=== PATIENT | female | born 1990 | race Caucasian/White ===

== ENCOUNTER 2023-05-12 11:51 | Inpatient (IN) | payer MEDICAID, SELFPAY ==
[2023-05-12 12:13] VITALS: BMI 28.6
[2023-05-12 12:16] VITALS: BP 127/77; PULSE 67; RESP 20; TEMP 36.9; O2SAT 98
[2023-05-12 14:00] VITALS: BP 125/68; PULSE 85; RESP 16; TEMP 37.1; O2SAT 97
[2023-05-12 19:26] VITALS: BP 123/73; PULSE 69; RESP 16; TEMP 37; O2SAT 97
[2023-05-12] MEDS: acetaminophen 325 mg Tablet 650 MG PO (20:39)
[2023-05-12] MEDS: trazodone 50 mg Tablet PO (20:39)
[2023-05-13 06:00] VITALS: BP 119/73; PULSE 74; RESP 18; O2SAT 90
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
--- NOTE | 2023-05-13 08:54 | PC.NURSE ---
During assessment, patient states that is feels anxiety and depression. Patient is not sure if she is going to be returning to her parents when is discharged from the unit. Patient denies thoughts of SI, HI, and AVH. Patient resting quietly in bed.
[2023-05-13 13:59] VITALS: BP 112/70; PULSE 71; RESP 20; TEMP 36.9; O2SAT 100
[2023-05-13] MEDS: acetaminophen 325 mg Tablet 650 MG PO (18:45)
--- NOTE | 2023-05-13 18:47 | PC.NURSE ---
Administered Tylenol to patient for menstrual cramps.
[2023-05-13 19:31] VITALS: BP 116/65; PULSE 106; RESP 18; TEMP 36.7; O2SAT 97
[2023-05-14 06:00] VITALS: BP 116/73; PULSE 88; RESP 18; TEMP 37; O2SAT 98
[2023-05-14] MEDS: acetaminophen 325 mg Tablet 650 MG PO (07:54)
--- NOTE | 2023-05-14 08:11 | PC.NURSE ---
During morning assessment, patient reports anxiety related leaving here and returning to her parents home; she doesn't always get along with her parents. Patient denied all else. Patient is experiencing mestrual cramps. Tylenol administered.
[2023-05-14 14:00] VITALS: BP 121/83; PULSE 97; RESP 16; TEMP 36.6; O2SAT 97
--- NOTE | 2023-05-14 16:12 | W.PM.NPUPNS ---
Subjective NPU Subjective: Patient presented today reporting that she is doing a little better. We had a lengthy discussion about the importance of taking responsibility for once thoughts in the CBT sense. She reports that she has no multiple side effects from the medication. We began discussing plans moving forward. Working with the social work team to find appropriate discharge plan and the importance of her crawling before she walks from the standpoint of finding her own place not being discouraged about being back home for the moment. Mental Status Exam MSE Comments: This is an obese white female in hospital scrubs with adequate grooming and eye contact. No abnormal movements except for psychomotor retardation.? Cooperative with exam in mild distress. Speech was decreased rate and volume. Mood described as a little better, affect is congruent. Thought process, organized. Thought content: patient denies current suicidal or homicidal ideation, there were no delusions reported or noted, and she denied auditory or visual hallucinations. Attention and concentration are intact and memory was mostly reliable but none were formally tested. She is alert and oriented x3. Insight and judgment are limited but improving and impulse control was impaired. Vitals/I&O/Wt Last Vital Signs Temp 98 F 05/14/23 14:00 Pulse 97 05/14/23 14:00 Resp 16 05/14/23 14:00 BP 121/83 05/14/23 14:00 Pulse Ox 97 05/14/23 14:00 O2 Del Method Room Air 05/14/23 14:00 Weight last 48 hrs Weight 78.29 kg A&P Assessment and plan (1) Major depressive disorder, recurrent: (2) PTSD (post-traumatic stress disorder): (3) Parent-child relational problem: (4) Suicide attempt: Plan This is a 32-year-old white female with a history of trauma, PTSD diagnosis and depression with significant psychosocial stressors on this visit with recent noncompliance with her psychotropic medications. 1.? Continue current medication.? Initiate Wellbutrin XL 150 mg p.o. daily. 2.???Encourage individual, group and milieu therapy 3.???Continue q-15 minute check for safety 4.? Recommend sober living treatment at the highest level of care to which the patient is willing to commit. Involuntary Hold Information 96 Hour Hold: 96 Hour Involuntary Admission: No Attestations NPU Medical Necessity Statement*: Inpatient hospitalization is medically necessary and the clinically appropriate intervention at this time. We will monitor medications and make changes as indicated. Likely length of stay is 2-4 days. Coding Level of Care Code Acute Code for Chg Fwd Diagnoses Major depressive disorder, recurrent F33.9 PTSD (post-traumatic stress disorder) F43.10 Parent-child relational problem Z62.820 Suicide attempt T14.91XA
[2023-05-14] MEDS: buPROPion SR (12 HR) 150 mg Tablet PO (18:06)
[2023-05-14 19:32] VITALS: BP 111/72; PULSE 65; RESP 18; TEMP 36.9; O2SAT 100
[2023-05-15 06:00] VITALS: BP 114/75; PULSE 63; RESP 16; O2SAT 96
[2023-05-15] MEDS: buPROPion XL (24 HR) 150 mg Tablet PO (08:16)
[2023-05-15 14:00] VITALS: BP 110/70; PULSE 65; RESP 16; TEMP 36.9; O2SAT 100
[2023-05-15] MEDS: ibuprofen 600 mg Tablet PO (16:16)
[2023-05-15 20:35] VITALS: BP 102/62; PULSE 87; RESP 16; TEMP 36.7; O2SAT 96
[2023-05-15] MEDS: trazodone 50 mg Tablet PO (20:42)
--- NOTE | 2023-05-15 22:07 | W.PM.NPUPNS ---
Subjective NPU Subjective: Patient presented today reporting that she was feeling better. She reports that she is tolerating the medication and denied any side effects. We discussed her plan for follow-up and working with the social work team for appropriate aftercare appointments. We discussed discharge tomorrow. Mental Status Exam MSE Comments: This is an obese white female in hospital scrubs with adequate grooming and eye contact. No abnormal movements except for psychomotor retardation.? Cooperative with exam in no acute distress. Speech was decreased rate and volume. Mood described as better, affect is congruent. Thought process, organized. Thought content: patient denies current suicidal or homicidal ideation, there were no delusions reported or noted, and she denied auditory or visual hallucinations. Attention and concentration are intact and memory was mostly reliable but none were formally tested. She is alert and oriented x3. Insight and judgment are improving and impulse control was limited but improving. Vitals/I&O/Wt Last Vital Signs Temp 98.1 F 05/15/23 20:35 Pulse 87 05/15/23 20:35 Resp 16 05/15/23 20:35 BP 102/62 05/15/23 20:35 Pulse Ox 96 05/15/23 20:35 O2 Del Method Room Air 05/15/23 20:35 A&P Assessment and plan (1) Major depressive disorder, recurrent: (2) PTSD (post-traumatic stress disorder): (3) Parent-child relational problem: (4) Suicide attempt: Plan This is a 32-year-old white female with a history of trauma, PTSD diagnosis and depression with significant psychosocial stressors on this visit with recent noncompliance with her psychotropic medications. 1.? Continue current medication.? Initiate Wellbutrin XL 150 mg p.o. daily. 2.???Encourage individual, group and milieu therapy 3.???Continue q-15 minute check for safety 4.? Recommend sober living treatment at the highest level of care to which the patient is willing to commit. Involuntary Hold Information 96 Hour Hold: 96 Hour Involuntary Admission: No Attestations NPU Medical Necessity Statement*: Inpatient hospitalization is medically necessary and the clinically appropriate intervention at this time. We will monitor medications and make changes as indicated. Likely length of stay is 1-3 days. Coding Level of Care Code Acute Code for [facility] Diagnoses Major depressive disorder, recurrent F33.9 PTSD (post-traumatic stress disorder) F43.10 Parent-child relational problem Z62.820 Suicide attempt T14.91XA
[2023-05-16 06:00] VITALS: BP 112/73; PULSE 67; RESP 16; O2SAT 96
[2023-05-16] MEDS: buPROPion XL (24 HR) 150 mg Tablet PO (09:17)
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
[2023-05-16 12:42] VITALS: BP 112/73; PULSE 67; RESP 16; O2SAT 96
[2023-05-16 14:00] VITALS: BP 128/81; PULSE 83; RESP 16; TEMP 36.8; O2SAT 99
--- NOTE | 2023-05-16 15:31 | PC.NURSE ---
written discharge instruction discussed and left with patient. pt states understanding and compliance. pt to leave with medicaid ride.
== END 2023-05-16 16:01 | disposition home or self-care (01) | DRG 885 ==
PROVIDERS: Admitting Provider Psychiatry & Neurology Psychiatry; Visit Provider Psychiatry & Neurology Psychiatry
DX: F33.9 Major depressive disorder, recurrent, unspecified (principal); R45.851 Suicidal ideations; T43.222A Poisoning by selective serotonin reuptake inhibitors, intentional self-harm, initial encounter; Z91.410 Personal history of adult physical and sexual abuse; T50.916A Underdosing of multiple unspecified drugs, medicaments and biological substances, initial encounter; Z91.128 Patient's intentional underdosing of medication regimen for other reason; F41.9 Anxiety disorder, unspecified; F43.10 Post-traumatic stress disorder, unspecified; Z87.891 Personal history of nicotine dependence; Z63.8 Other specified problems related to primary support group; Z62.820 Parent-biological child conflict
CPT/HCPCS: 97150; 97165; 99238